=== PATIENT | female | born 1940 | race Caucasian/White ===

== ENCOUNTER → 2024-12-17 15:36 | Outpatient (REF) | payer MEDICARE, SELFPAY | LOC: RAD 15:36 | PROVIDERS: ATTENDING PHYSICIAN Physician Assistant | DX: K62.5 Hemorrhage of anus and rectum (principal); R19.09 Other intra-abdominal and pelvic swelling, mass and lump | CPT/HCPCS: 74177; Q9967 ==

== ENCOUNTER 2025-01-16 02:40 | Emergency (ER) | payer MEDICARE, SELFPAY ==
[2025-01-16 02:44] VITALS: BP 115/90
[2025-01-16 03:00] VITALS: BP 115/60
[2025-01-16 03:05] LABS: Hematocrit 35.8 % (37.0-47.0); Hemoglobin 11.8 g/dL (12.0-16.0); Mean Corp Hgb Conc. 33.0 g/dL (33.0-37.0); Mean Corpuscular Volume 91.6 fL (81.0-99.0); Nucleated Red Blood Cells % 0 %; Platelet Count 225 10^3/uL (130-400); Red Cell Dist. Width 13.3 % (11.5-14.5)
[2025-01-16 03:35] LABS: ALT (SGPT) 16 U/L (0-35); AST (SGOT) 22 U/L (14-36); Albumin 4.1 g/dl (3.5-5.0); Alkaline Phosphatase 82 U/L (38-126); Blood Urea Nitrogen 27 mg/dl (7-17); Calcium 9.5 mg/dl (8.4-10.2); Carbon Dioxide 27 mmol/L (22-30); Chloride 105 mmol/L (98-107); Glucose 101 mg/dl (70-99); Potassium 4.2 mmol/L (3.5-5.1); Sodium 137 mmol/L (135-145); Total Protein 7.0 g/dl (6.3-8.2); eGFR > 60.00
[2025-01-16 04:00] VITALS: BP 125/64
[2025-01-16 04:49] VITALS: BP 126/66
--- NOTE | 2025-01-16 04:56 | ED.GENMED ---
History of Present Illness
General
Chief Complaint: Vaginal Bleeding
Source: patient, spouse and family
Exam Limitations: none
Time Seen by Provider: 01/16/25 04:14
Nursing documentation reviewed up to this point in time: agreed with
History of Present Illness
History of Present Illness:
84-year-old female presents emergency department after having vaginal bleeding when she pulled on her recently placed a pessary device. This was placed [address] Hendrix.
Past History
Past History
ED Past Medical History: HTN and Hypercholesterolemia
ED Past Surgical History: Appendectomy, Cholecystectomy and Gynecological
Social History
Tobacco: Non-smoker
Personal:
Living: with family
Family History
Family History: Other (CVA)
Review of Systems
Review of Systems
Allergies reviewed?: Yes
All Other Systems: Not applicable
Constitutional: Reports no symptoms
EENT: Reports no symptoms
Respiratory: Reports no symptoms
Cardiac: Reports no symptoms
ABD/GI: Reports no symptoms
: Reports bleeding
Musculoskeletal: Reports no symptoms
Skin: Reports no symptoms
Neurological: Reports no symptoms
Endocrine: Reports no symptoms
Hematologic/Lymphatic: Reports no symptoms
Psychiatric: Reports no symptoms
Phy Exam
Physical Exam
Physical Exam:
Physical Exam
General: no apparent distress, not acutely ill
Neck: supple. no meningeal signs. normal posterior pharynx
Heart: equal radial pulses.
HEENT: Pupils equal round reactive to light, EOMI
Lungs: no acute respiratory distress.
Abdomen: normal bowel sounds. not tender. no CVAT
Neuro: alert and oriented. no focal neurological deficits
Skin: no rash
Psychiatric: well kept. interactive and cooperative
Extremities: no edema. good distal pulses
Genitourinary Exam Female
Exam Female: no lesions, no mass and no vaginal discharge
Vaginal Exam: normal
Vaginal Bleeding: minimal
Visual exam of cervix: friable and os closed
Uterus: normal size
Adnexa: Bilateral: Normal
Course
Orders/Labs/Results
Orders:
Orders
01/16/25 02:52
Complete Blood Count/With Diff Urgent
Comprehensive Metabolic Panel Urgent
Abnormal Lab Results
01/16/25
02:52
RBC 3.91 L 10^6/uL
(4.20-5.40)
Hgb 11.8 L g/dL
(12.0-16.0)
Hct 35.8 L %
(37.0-47.0)
MPV 10.7 H fL
(7.4-10.4)
Absolute Monos (auto) 0.7 H 10^3/uL
(0.1-0.6)
BUN 27 H mg/dl
(7-17)
Glucose 101 H mg/dl
(70-99)
01/16/25 02:52
01/16/25 02:52
Vital Signs
Initial and Last Documented VS:
Initial Vital Signs
Pulse Resp BP Pulse Ox
71 23 115/90 93
01/16/25 02:44 01/16/25 02:44 01/16/25 02:44 01/16/25 02:44
Last Documented Vital Signs
Temp Pulse Resp BP Pulse Ox
98.0 F 78 17 126/66 94
01/16/25 02:45 01/16/25 04:30 01/16/25 03:45 01/16/25 04:49 01/16/25 04:48
MDM/Problems Addressed
Differential Diagnosis Includes:
Vaginal foreign body, vaginal bleeding
MDM/Problems Addressed:
84-year-old female with vaginal bleeding, pessary device not found on exam, possibly removed by patient. She will follow-up with Dr. Hendrix. Stable for discharge.
*Pulse Oximetry
SaO2: 94
Oxygen Mode of Delivery: Room air
Patient hypoxic: no
*Critical Care Note
Total Time (30-74mins, 75-104mins- exclusive of procedures): Not Applicable
Data Reviewed
Review of Other/Old Records Reveals: Labs (Prior hemoglobin 11.3 on 11/18/2022)
Source: records
Patient Management
Social determinants of health affecting care: Living situation and Strong social support
Escalation/DeEscalation of care consider admission/obs:
Admit not indicated
ED Attending Note
-
Portions of this chart may have been created with voice recognition software.� Occasional wrong word or��sound alike� substitutions may have occurred due to the inherent limitations of voice recognition software.
Discharge Plan
Departure
Patient Disposition: Home (Routine Discharge)
Date of Disposition: 01/16/25
Time of Disposition: 05:01
Patient with high blood pressure during this ER visit?: Yes
Condition: Good
Discharge Problem:
Abnormal vaginal bleeding, Vaginal irritation from pessary
Instructions: Bleeding After Menopause, BLOOD PRESSURE
Prescriptions:
No Action
indapamide 2.5 MG tablet
2.5 mg PO DAILY
levothyroxine [Synthroid] 150 MCG tablet
150 mcg PO DAILY AT 0700
pravastatin 20 MG tablet
20 mg PO DAILY
valacyclovir 1 gram Tablet
1,000 mg PO TID
acetaminophen 325 mg Tablet
650 mg PO Q4HPRN PRN (Reason: mild pain/CARNEY/temp> 100.4F) 30 Days Qty: 60 0RF
enalapril maleate 10 mg Tablet
10 mg PO BID 30 Days Qty: 60 0RF
melatonin 3 mg Tablet
3 mg PO HS 30 Days Qty: 30 0RF
gabapentin 100 mg Capsule
100 mg PO BID 30 Days Qty: 180 0RF
oxybutynin chloride 5 mg Tablet
5 mg PO BID 30 Days Qty: 60 0RF
indomethacin 75 mg Capsule, Extended Release
75 mg PO DAILY 30 Days Qty: 30 0RF
Referrals:
Edilia Che MD [Family Provider, [facility]]
Activity Restrictions/Additional Instructions:
see Dr. Hendrix on Saturday. Return for any concerns.
Interventions
Interventions:
*Risk Screen - Suicide Last Done: 01/16/25 02:45
*General Assessment Last Done: 01/16/25 02:45
*Neglect/Abuse Screening Last Done: 01/16/25 02:45
*ED- Fall Risk Assessment Last Done: 01/16/25 02:45
*ED COVID-19 Vaccine History Last Done: 01/16/25 02:45
*Nursing Disposition Last Done: 01/16/25 04:56
ED-Female Genitourinary Assessment Last Done: 01/16/25 02:45
Discharge Date and Time
Print Language: EGYPTIAN
== END 2025-01-16 05:06 | disposition home or self-care (01) ==
LOC: EMR 02:40
PROVIDERS: EMERGENCY PHYSICIAN Emergency Medicine; FAMILY PHYSICIAN Family Medicine
DX: N93.9 Abnormal uterine and vaginal bleeding, unspecified (principal); N89.8 Other specified noninflammatory disorders of vagina; I10 Essential (primary) hypertension
CPT/HCPCS: 99283; 80053; 85025